=== PATIENT | male | born 1995 | race Two or more races ===

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

== ENCOUNTER 2018-11-20 23:59 | Emergency (ER) | payer BC, OTHER ==
[2018-11-21 00:05] VITALS: BP 125/91
== END 2018-11-21 00:34 | disposition left against medical advice (07) ==
LOC: ED 11-21 00:07
DX: R06.02 Shortness of breath (principal); Z53.21 Procedure and treatment not carried out due to patient leaving prior to being seen by health care provider

== ENCOUNTER 2018-11-22 15:02 | Emergency (ER) | payer BC ==
[2018-11-22 15:19] VITALS: BP 137/87
--- NOTE | 2018-11-22 15:21 | UC ---
Respiratory Complaint HPI - HPI Summary HPI Summary: 23 y/o male w/ PMHX of Asthma presents to the urgent care c/o nasal congestion, sore throat, cough and wheezing for the past 2 days. He has Hx of seasonal allergies and was playing sports and he thinks that triggered his asthma. He has been doing albuterol neb treatment and Singular w/o improvement. He went to the ER yesterday, but couldn't wait and left w/o being seen. Symptoms started as a URI, but he thinks he is having an asthma exacerbation. He took Tylenol Severe cold medicine OTC last night to alleviate symptoms. Pain w/ swallowing is 3/10. Pt denies SOB, chest pain, dizziness, difficulty breathing , abdominal pain, N/V/D. Pt is eating well and drinking fluids. He is UTD w/ all vaccines for his age. - History of Current Complaint Chief Complaint: UCRespiratory Stated Complaint: COLD SYMPTOMS Time Seen by Provider: 11/22/18 15:19 Hx Obtained From: Patient Onset/Duration: Gradual Onset, Lasting Days - nasal congestion, sore throat, cough and wheezing for the past 2 days, Still Present, Worse Since - today w/ moderate wheezing and mild SOB Timing: Constant Severity Initially: Mild Severity Currently: Moderate Pain Intensity: 3 - sore throat Pain Scale Used: 0-10 Numeric Character: Cough: Nonproductive Aggravating Factors: Allergens, Recumbent Position, Other - wheezing Alleviating Factors: Bronchodilator Associated Signs And Symptoms: Positive: Dyspnea - mild SOB, Wheezing, URI, Nasal Congestion, Sinus Discomfort. Negative: Fever, Chills, Hemoptysis, Dizziness Related History: Seasonal Allergies - Risk Factors Pulmonary Embolism Risk Factors: Negative Cardiac Risk Factors: Negative Pseudomonas Risk Factors: Negative Tuberculosis Risk Factors: Negative - Allergies/Home Medications Allergies/Adverse Reactions: Allergies Allergy/AdvReac Type Severity Reaction Status Date / Time environmental/seasonal Allergy congestion, Uncoded 11/22/18 15:20 sneezing Home Medications: Home Medications D-Methorphan/PE/Acetaminophen [Tylenol Cold Multi-Symp Caplet] 1 each PO DAILY 11/22/18 [History Confirmed 11/22/18] Fluticasone/Vilanterol [Breo Ellipta 200-25 Mcg INH] 1 inh ALT NARE DAILY [History Confirmed 11/22/18] PMH/Surg Hx/FS Hx/Imm Hx Previously Healthy: Yes Respiratory History: Asthma - Surgical History Surgical History: Yes Surgery Procedure, Year, and Place: 2014 LEFT SHOULDER SURGERY, [place], [place] - Family History Known Family History: Positive: Hypertension, Diabetes, Respiratory Disease - asthma - Social History Occupation: Student Lives: With Family Alcohol Use: None Substance Use Type: None Smoking Status (MU): Never Smoked Tobacco Review of Systems All Other Systems Reviewed And Are Negative: Yes Constitutional: Positive: Negative Skin: Positive: Negative Eyes: Positive: Negative ENT: Positive: Sore Throat, Nasal Discharge - clear, Sinus Congestion, Other - PND clear Respiratory: Positive: Shortness Of Breath - mild, Cough - dry, Other - wheezing Cardiovascular: Positive: Negative Gastrointestinal: Positive: Negative Genitourinary: Positive: Negative Motor: Positive: Negative Neurovascular: Positive: Negative Musculoskeletal: Positive: Negative Neurological: Positive: Negative Psychological: Positive: Negative Is Patient Immunocompromised?: No Physical Exam - Summary Physical Exam Summary: Vital Signs Reviewed: Yes General: well developed, well nourished male sitting in the examining table w/o any apparent distress Eyes: Positive: Conjunctiva Clear - PERRLA, EOMI, fundi grossly normal ENT: Positive: Normal ENT inspection, Hearing grossly normal, Pharynx normal, Nasal congestion - edematous and erythematous nasal mucosa, Nasal drainage - yellowish drainage, TMs normal. Negative: Tonsillar swelling, Tonsillar exudate Neck: Positive: Supple, Nontender, No Lymphadenopathy Respiratory: no orthopnea or dyspnea. Able to speak in full sentences, no retractions or accessory muscle use, no tripod position, stridor, or head bobbing. Positive breath sounds bilaterally. diffuse scattered wheezing, no rhonchi on b/L lungs, no crackles or rales. Cardiovascular: Positive: RRR, No Murmur, Pulses Normal, Brisk Capillary Refill Abdomen Description: Positive: Nontender, No Organomegaly, Soft. Negative: CVA Tenderness (R), CVA Tenderness (L) Bowel Sounds: Positive: Present Musculoskeletal Exam: Normal Musculoskeletal: Positive: Strength Intact, ROM Intact, No Edema Neurological Exam: Normal Psychological Exam: Normal Skin Exam: Normal Triage Information Reviewed: Yes Vital Signs: Initial Vital Signs Temp 97.7 F 11/22/18 15:13 Pulse 93 09/12/19 15:13 Resp 17 11/22/18 15:13 BP 137/87 11/22/18 15:13 Pulse Ox 96 11/22/18 15:13 Respiratory Course/Dx - Course Course Of Treatment: 23 y/o male w/ PMHX of Asthma presents to the urgent care c/o nasal congestion, sore throat, cough and wheezing for the past 2 days. He has Hx of seasonal allergies and was playing sports and he thinks that triggered his asthma. He has been doing albuterol neb treatment and Singular w/o improvement. He went to the ER yesterday, but couldn't wait and left w/o being seen. Symptoms started as a URI, but he thinks he is having an asthma exacerbation. He took Tylenol Severe cold medicine OTC last night to alleviate symptoms. Pain w/ swallowing is 3/10. Pt denies SOB, chest pain, dizziness, difficulty breathing , abdominal pain, N/V/D. Pt is eating well and drinking fluids. He is UTD w/ all vaccines for his age. Hx obtained. Pt is hemodynamically stable, A&OX3 w/ scattered wheezes on bilaterally lungs,no rhonchi, crackles or rales on examinatio. Rapid strep: negative. Chest X-ray ordered: no acute cardiopulmonary disease observed as per radiologist. O2Sat:96%. Pt given Prednisone PO and Duoneb Treatment to alleviate symptoms. Pt tolerated well treatment and lungs improved,and wheezing resolved. Patient prescribed Prednisone taper dose, Duoneb treatment to alleviate symptoms as directed below. The patient was recommended to increase fluid intake. Take medications as recommended. Pt advised to return to the clinic or f/u w/ her PCP if symptoms do not improve. All D/C instructions explained. Patient understood and agree w/ plan of care. Pt left clinic hemodynamically stable , A&OX3 - Differential Dx/Diagnosis Differential Diagnosis/HQI/PQRI: Asthma, Bronchitis, Influenza, Lower Resp Infection, Sinusitis, Other - pharyngitis Provider Diagnosis: Acute exacerbation of asthma with allergic rhinitis Discharge ED - Sign-Out/Discharge Documenting (check all that apply): Patient Departure - d/C home All imaging exams completed and their final reports reviewed: Yes - Discharge Plan Condition: Stable Disposition: HOME Prescriptions: Albuterol/Ipratropium NEB.VIRAL* [Duoneb (Albuterol 2.5 MG/Ipratropium 0.5 MG)] 1 neb INH Q6H PRN #1 bag PRN Reason: Wheezing predniSONE TAB* [Deltasone 20 MG TAB*] 20 mg PO DAILY #8 tab Patient Education Materials: Asthma (ED) Referrals: CONNIE Meek [Primary Care Provider] - 3 Days Additional Instructions: 1- Take Prednisone PO taper dose as directed starting tomorrow. First loading dose given today. 2-Use the Duoneb nebulizer treatment to alleviate SOB, and wheezing as directed . Increase fluid intake, rest and eat well. 3- If symptoms do not improve or worsen or your develop SOB with fever and severe wheezing please go immediately to the ER further evaluation and treatment. 4- F/u with your PCP in 3 days for further management on your Asthma 5- Take Claritin PO to alleviate symptoms of seasonal allergies. - Billing Disposition and Condition Condition: STABLE Disposition: Home
[2018-11-22] MEDS ORDERED: Albuterol/Ipratropium NEB.SOL* Albuterol 2.5 MG/Ipratropium 0.5 MG 3 ML INH ONE (15:32)
[2018-11-22] MEDS ORDERED: predniSONE TAB* 20 MG PO ONE (15:33)
== END 2018-11-22 16:50 | disposition home or self-care (01) ==
LOC: UCEAST 15:02
DX: J45.901 Unspecified asthma with (acute) exacerbation (principal)
CPT/HCPCS: 71046; 87651; 99212; A9270-GY; G0463; J7512